=== PATIENT | male | born 1965 | race Caucasian/White ===

== ENCOUNTER 2021-10-17 19:02 | Inpatient (IN) | payer OTHER ==
[2021-10-17 20:41] VITALS: BMI 21.7
[2021-10-17] MEDS ORDERED: ACETAMINOPHEN 325 MG TABLET (FP) PO PRN ×2 (21:12)
[2021-10-17] MEDS ORDERED: ONDANSETRON *ODT* 4 MG TABLET SL PRN (21:12)
[2021-10-17] MEDS ORDERED: MAGNESIUM HYDROX 2400MG/30ML ORAL SUSPENSION 30 ML CUP PO PRN (21:12)
[2021-10-17] MEDS ORDERED: MAGNESIUM CITRATE 300 ML BOTTLE PO PRN (21:12)
[2021-10-17] MEDS ORDERED: DICYCLOMINE HCL 10 MG CAPSULE PO PRN (21:12)
[2021-10-17] MEDS ORDERED: NICOTINE POLACRILEX 2 MG GUM BUC PRN (21:12)
[2021-10-17] MEDS ORDERED: P-EPHED 60MG/TRIPROLIDI 2.5MG TABLET PO PRN (21:12)
[2021-10-17] MEDS ORDERED: LOPERAMIDE HCL 2 MG CAPSULE PO PRN (21:12)
[2021-10-17] MEDS ORDERED: BISMUTH SUBSALICYLATE 524 MG/30 ML PO PRN (21:12)
[2021-10-17] MEDS ORDERED: BENZOCAINE/MENTHOL (CHLORASEPTIC ) LOZENGE MM PRN (21:12)
[2021-10-17] MEDS ORDERED: MAG HYDROX/AL HYDROX/SIMETH 30 ML UNIT-DOSE CUP PO PRN (21:12)
[2021-10-18] MEDS: hydrOXYzine PAMOATE 25 MG CAPSULE (FP) PO PRN ×3 (00:42→22:17)
[2021-10-18] MEDS: MELATONIN 5 MG TABLETS PO SCH ×2 (00:43→22:22)
[2021-10-18] MEDS: THIAMINE HCL 100 MG TABLET (FP) PO SCH ×2 (00:44→22:17)
[2021-10-18] MEDS ORDERED: methaDONE HCL 10 MG TABLET (FOR DETOX USE ONLY) PO ONE (10:00)
[2021-10-18] MEDS: PRENATAL VITAMINS W/ FOLIC ACID TABLET (FP) PO SCH (10:10)
[2021-10-18 10:33] LABS: HEMATOCRIT 38.5 % (35.4-49); HEMOGLOBIN 12.3 GM/dL (11.7-16.9); MCH 24.1 pg (25.7-33.7); MEAN CELL VOLUME 75.5 fl (80-96); MEAN PLT VOLUME 10.5 fl (7.5-11.1); PLATELET COUNT 130 10^3/uL (134-434); RBC 5.09 M/mm3 (4.00-5.60); WHITE BLOOD COUNT 3.9 K/mm3 (4.0-10.0)
[2021-10-18 10:36] LABS: ALBUMIN 3.2 g/dl (3.4-5.0); BLOOD UREA NITROGEN 11.5 mg/dL (7-18)
[2021-10-18 10:37] LABS: CREATININE 0.7 mg/dL (0.55-1.3)
[2021-10-18 10:39] LABS: BILIRUBIN,TOTAL 0.4 mg/dL (0.2-1); TOT PROT 6.4 g/dl (6.4-8.2)
[2021-10-18] MEDS: IBUPROFEN 400 MG TABLET (FP) PO PRN (18:02)
[2021-10-18] MEDS: cloNIDine HCL 0.1 MG TABLET PO PRN (18:02)
[2021-10-18] MEDS: METHOCARBAMOL 500 MG TABLET PO PRN (18:03)
[2021-10-18] MEDS ORDERED: diazePAM 5 MG TABLET PO PRN (19:38)
[2021-10-19] MEDS: PRENATAL VITAMINS W/ FOLIC ACID TABLET (FP) PO SCH (10:23)
[2021-10-19] MEDS: amLODIPine BESYLATE 2.5 MG TABLET (FP) PO SCH (13:33)
[2021-10-19] MEDS: cloNIDine HCL 0.1 MG TABLET PO PRN ×2 (18:20→22:24)
[2021-10-19] MEDS: hydrOXYzine PAMOATE 25 MG CAPSULE (FP) PO PRN ×2 (18:20→22:24)
[2021-10-19] MEDS: IBUPROFEN 400 MG TABLET (FP) PO PRN (18:21)
[2021-10-19] MEDS ORDERED: diazePAM 5 MG TABLET PO PRN (19:38)
[2021-10-19] MEDS: METHOCARBAMOL 500 MG TABLET PO PRN (22:24)
[2021-10-19] MEDS: THIAMINE HCL 100 MG TABLET (FP) PO SCH (22:24)
[2021-10-19] MEDS: MELATONIN 5 MG TABLETS PO SCH (22:24)
[2021-10-20 09:18] VITALS: BP 148/72; PULSE 62; TEMP 96.8
[2021-10-20] MEDS ORDERED: methaDONE HCL 10 MG TABLET (FOR DETOX USE ONLY) PO ONE (10:00)
[2021-10-20] MEDS: PRENATAL VITAMINS W/ FOLIC ACID TABLET (FP) PO SCH (10:12)
[2021-10-20] MEDS: amLODIPine BESYLATE 2.5 MG TABLET (FP) PO SCH (10:51)
[2021-10-20] MEDS ORDERED: NALOXONE HCL (KLOXXADO) 8 MG SPRAY NS PRN (11:54)
== END 2021-10-20 12:20 | disposition home or self-care (01) | DRG 897 ==
LOC: YASAS 19:02 → Y6N 23:18
PROVIDERS: ADMIT Allergy & Immunology; ATTEND Surgery
PROC: HZ2ZZZZ Detoxification Services for Substance Abuse Treatment (ICD-10-PCS; principal; 2021-10-17)
DX: F11.23 Opioid dependence with withdrawal (principal); F14.20 Cocaine dependence, uncomplicated; F17.210 Nicotine dependence, cigarettes, uncomplicated; F19.24 Other psychoactive substance dependence with psychoactive substance-induced mood disorder; F32.A Depression, unspecified; Z91.19 Patient's noncompliance with other medical treatment and regimen
CPT/HCPCS: 36415; 80053; 85027; 86780; 87811; C9803-CS; J0735; U0003; U0005

== ENCOUNTER 2023-03-07 13:38 | Inpatient (IN) | payer OTHER ==
[2023-03-07 14:14] VITALS: BMI 21.2
[2023-03-07] MEDS ORDERED: IBUPROFEN 400 MG TABLET (FP) PO PRN (15:09)
[2023-03-07] MEDS ORDERED: ACETAMINOPHEN 325 MG TABLET (FP) PO PRN (15:09)
[2023-03-07] MEDS ORDERED: POLYETHYLENE GLYCOL (HEALTHYLAX) 3350 17 GM PACKET PO PRN (15:09)
[2023-03-07] MEDS ORDERED: BENZOCAINE/MENTHOL (CHLORASEPTIC ) LOZENGE MM PRN (15:09)
[2023-03-07] MEDS ORDERED: P-EPHED 60MG/TRIPROLIDI 2.5MG TABLET PO PRN (15:09)
[2023-03-07] MEDS ORDERED: ONDANSETRON *ODT* 4 MG TABLET SL PRN (15:09)
[2023-03-07] MEDS ORDERED: NALOXONE HCL 0.4 MG/ML VIAL IM PRN (15:09)
[2023-03-07] MEDS ORDERED: guaiFENesin 600 MG TABLET.ER (FP) PO PRN (15:09)
[2023-03-07] MEDS ORDERED: DICYCLOMINE HCL 10 MG CAPSULE PO PRN (15:09)
[2023-03-07] MEDS ORDERED: BENZONATATE 200 MG CAPSULE PO PRN (15:09)
[2023-03-07] MEDS ORDERED: BISMUTH SUBSALICYLATE 262 MG/15 ML BTL PO PRN (15:09)
[2023-03-07] MEDS ORDERED: NALOXONE HCL (KLOXXADO) 8 MG SPRAY NS PRN (15:09)
[2023-03-07] MEDS ORDERED: LOPERAMIDE HCL 2 MG CAPSULE PO PRN (15:09)
[2023-03-07] MEDS ORDERED: NICOTINE POLACRILEX 2 MG GUM BUC PRN (15:09)
[2023-03-07] MEDS ORDERED: MAG HYDROX/AL HYDROX/SIMETH 30 ML UNIT-DOSE CUP PO PRN (15:09)
[2023-03-07] MEDS ORDERED: MAGNESIUM HYDROX 2400MG/30ML ORAL SUSPENSION 30 ML CUP PO PRN (15:09)
[2023-03-07] MEDS: MELATONIN 5 MG TABLETS PO SCH (21:57)
[2023-03-07] MEDS: IBUPROFEN 600 MG TABLET (FP) PO PRN (21:57)
[2023-03-07] MEDS: THIAMINE HCL 100 MG TABLET (FP) PO SCH (21:59)
[2023-03-07] MEDS: METHOCARBAMOL 500 MG TABLET PO PRN (21:59)
[2023-03-07] MEDS: hydrOXYzine PAMOATE 25 MG CAPSULE (FP) PO PRN (21:59)
[2023-03-08] MEDS: PRENATAL VITAMINS W/ FOLIC ACID TABLET (FP) PO SCH (09:52)
[2023-03-08] MEDS: hydrOXYzine PAMOATE 25 MG CAPSULE (FP) PO PRN ×2 (09:53→17:16)
[2023-03-08] MEDS: METHOCARBAMOL 500 MG TABLET PO PRN ×2 (09:53→22:18)
[2023-03-08] MEDS ORDERED: methaDONE HCL 10 MG TABLET (FOR DETOX USE ONLY) PO ONE (10:45)
[2023-03-08] MEDS: cloNIDine HCL 0.1 MG TABLET PO PRN ×2 (10:55→22:18)
[2023-03-08 11:06] LABS: POTASSIUM 5.3 mmol/L (3.5-5.1)
[2023-03-08 11:28] LABS: ALBUMIN 2.5 g/dl (3.4-5.0); CALCIUM 8.5 mg/dL (8.5-10.1)
[2023-03-08 11:29] LABS: BLOOD UREA NITROGEN 9.3 mg/dL (7-18)
[2023-03-08 11:31] LABS: CREATININE 0.6 mg/dL (0.55-1.3)
[2023-03-08 11:33] LABS: BILIRUBIN,TOTAL 0.2 mg/dL (0.2-1); TOT PROT 6.4 g/dl (6.4-8.2)
[2023-03-08 11:38] LABS: HEMATOCRIT 39.4 % (35.4-49); HEMOGLOBIN 12.8 GM/dL (11.7-16.9); MCH 23.8 pg (25.7-33.7); MCHC 32.5 g/dl (32.0-35.9); MEAN CELL VOLUME 73.1 fl (80-96); MEAN PLT VOLUME 9.7 fl (7.5-11.1); PLATELET COUNT 247 10^3/uL (134-434); RBC 5.39 M/mm3 (4.00-5.60); RDW 15.2 % (11.9-15.9); WHITE BLOOD COUNT 4.2 K/mm3 (4.0-10.0)
[2023-03-08] MEDS ORDERED: FLU VACCINE (FLULAVAL) PF 60 MCG/0.5 ML SYRINGE 2023-2024 IM ONE (12:00)
[2023-03-08] MEDS: IBUPROFEN 600 MG TABLET (FP) PO PRN (19:47)
[2023-03-08] MEDS: THIAMINE HCL 100 MG TABLET (FP) PO SCH (22:18)
[2023-03-08] MEDS: MELATONIN 5 MG TABLETS PO SCH (22:18)
[2023-03-09 06:39] VITALS: PULSE 60; RESP 18; TEMP 97.7
[2023-03-09 09:09] VITALS: BP 155/66
[2023-03-09] MEDS: METHOCARBAMOL 500 MG TABLET PO PRN (10:11)
[2023-03-09] MEDS: hydrOXYzine PAMOATE 25 MG CAPSULE (FP) PO PRN (10:11)
[2023-03-09] MEDS: PRENATAL VITAMINS W/ FOLIC ACID TABLET (FP) PO SCH (10:11)
[2023-03-09 11:52] LABS: POTASSIUM 4.6 mmol/L (3.5-5.1)
[2023-03-09 11:56] LABS: BLOOD UREA NITROGEN 10.5 mg/dL (7-18); CALCIUM 8.9 mg/dL (8.5-10.1)
[2023-03-09 12:00] LABS: CREATININE 0.7 mg/dL (0.55-1.3)
[2023-03-10] MEDS ORDERED: methaDONE HCL 10 MG TABLET (FOR DETOX USE ONLY) PO ONE (10:00)
[2023-03-12] MEDS ORDERED: methaDONE HCL 10 MG TABLET (FOR DETOX USE ONLY) PO ONE (10:00)
== END 2023-03-09 12:53 | disposition left against medical advice (07) | DRG 894 ==
LOC: YASAS 13:38 → Y3N 16:39
PROVIDERS: ADMIT Allergy & Immunology; ATTEND Surgery
PROC: HZ2ZZZZ Detoxification Services for Substance Abuse Treatment (ICD-10-PCS; principal; 2023-03-07)
DX: F11.23 Opioid dependence with withdrawal (principal); F17.210 Nicotine dependence, cigarettes, uncomplicated; E87.5 Hyperkalemia
CPT/HCPCS: 36415; 80048; 80053; 85027; 86780; 87070; 87076; 87186; 87205; 87635; 93005; 93010